=== PATIENT | male | born 1955 | race Caucasian/White ===

== ENCOUNTER 2017-10-11 20:09 | Emergency (ER) | payer MEDICARE, OTHER ==
[2017-10-11] MEDS ORDERED: Lidocaine 1%* 5 ML VIAL INJ ONE (22:48)
[2017-10-12 00:25] VITALS: BP 141/72
--- NOTE | 2017-10-12 01:43 | ED ---
Upper Extremity Pain - HPI Summary HPI Summary: Patient is a 62-year-old male presenting to emergency department for a left second finger injury as well as a right lower leg injury that occurred just prior to arrival. Patient states that he was docking his boat when he lost balance, fell and landed onto left second digit of hand. Patient states he struck his right lower leg off of it on the dock. No head injury or loss of consciousness. Patient is not anticoagulated. Can ambulate with pain. Symptoms are mild in severity. Moving affected areas makes symptoms worse. Rest makes symptoms better. - History of Current Complaint Chief Complaint: EDExtremityLower Stated Complaint: LEG/FINGER INJURY Time Seen by Provider: 10/11/17 22:14 Hx Obtained From: Patient - Allergies/Home Medications Allergies/Adverse Reactions: Allergies Allergy/AdvReac Type Severity Reaction Status Date / Time pregabalin [From Lyrica] Allergy Swelling Verified 10/11/17 20:25 Home Medications: Home Medications Aspirin [Adult Aspirin Regimen] 81 mg PO DAILY 10/11/17 [History Confirmed 10/11] Carvedilol TAB* [Coreg TAB*] 3.125 mg PO BID 10/11/17 [History Confirmed ] Docusate CAP* [Colace Cap*] 100 mg PO DAILY 10/11/17 [History Confirmed 10/11/17 ] Glimepiride (NF) 4 mg PO BID 10/11/17 [History Confirmed 10/11/17] Lisinopril/HCTZ 20/12.5(NF) [Zestoretic 20/12.5(NF)] 1 tab PO DAILY 10/11/17 [ History Confirmed 10/11/17] Meloxicam 15 mg PO DAILY 10/11/17 [History Confirmed 10/11/17] Pantoprazole TAB (NF) [Protonix TAB (NF)] 40 mg PO DAILY 10/11/17 [History Confirmed 10/11/17] Simvastatin TAB(NF) [Zocor(NF)] 20 mg PO 1700 10/11/17 [History Confirmed ] metFORMIN* [Glucophage 1000 MG TAB *] 1,000 mg PO BID 10/11/17 [History Confirmed 10/11/17] PMH/Surg Hx/FS Hx/Imm Hx Previously Healthy: Yes Infectious Disease History: No Infectious Disease History: Denies: Traveled Outside the [place] in Last 30 Days - Social History Occupation: Retired Lives: With Family Alcohol Use: None Substance Use Type: Reports: None Smoking Status (MU): Never Smoked Tobacco Review of Systems Positive: Other - Pain to left 2nd digit of hand. Right lower leg pain. Positive: Bruising Negative: Headache, Weakness, Paresthesia, Numbness, Syncope All Other Systems Reviewed And Are Negative: Yes Physical Exam Triage Information Reviewed: Yes Vital Signs On Initial Exam: Initial Vitals Temp Pulse Resp BP Pulse Ox 98.5 F 103 18 122/80 96 10/11/17 20:25 10/11/17 20:25 10/11/17 20:25 10/11/17 20:25 10/11/17 20:25 Vital Signs Reviewed: Yes Appearance: Positive: Well-Appearing - Pt. sitting on bed in NAD. Skin: Positive: Warm, Dry Head/Face: Positive: Normal Head/Face Inspection Eyes: Positive: Normal Neck: Positive: Supple Musculoskeletal: Positive: Other - Pain, mild edema and ecchymosis to the right distal medial leg. No breaks in the skin. Leg is neurovascularly intact. No knee or ankle pain. Compartment is soft. Obvious deformity to the left 2nd digit of hand. No breaks in the skin. No proximal pain. Neurological: Positive: Normal, CN Intact II-III Psychiatric: Positive: Affect/Mood Appropriate Procedures - Joint Reduction Left Joint Reduction Site: other - Left second digit of hand Specify Other Joint Reduced: Left second PIP joint of hand Conscious Sedation: No - Digital block using1% lido. Reduction Attempts: 1 Pre-Procedure NV Exam: Yes Post Joint Reduction Film: joint reduced Diagnostics - Vital Signs Vital Signs Temp Pulse Resp BP Pulse Ox 10/12/17 00:23 98.1 F 76 16 141/72 98 10/11/17 20:25 98.5 F 103 18 122/80 96 - Laboratory Lab Statement: Any lab studies that have been ordered have been reviewed, and results considered in the medical decision making process. Course/Dx - Course Course Of Treatment: Patient presenting with left finger injury and right lower leg injury. X-rays of right lower leg are negative for fracture dislocation, reading per radiology. X-ray of the left second digit of hand shows a dislocation at the PIP joint, no fracture, reading per radiology. Joint was easily reduced as noted above. Splint placed. Kip wrap placed right lower leg for comfort. Advised patient to call orthopedics on Friday for close follow-up appointment. Keep splint in place. To ice and elevate leg and finger intermittently. Tylenol for pain as directed. To return to the ear symptoms change or worsen. Patient understands and agrees with plan. - Diagnoses Differential Diagnosis/HQI/PQRI: Positive: Contusion, Fracture (Closed), Hematoma, Strain, Sprain Provider Diagnoses: Contusion of leg, right, Finger dislocation Discharge - Sign-Out/Discharge Documenting (check all that apply): Discharge/Admit/Transfer - Discharge Plan Condition: Good Disposition: HOME Patient Education Materials: Contusion in Adults (ED), Finger Dislocation (ED) Referrals: Ming Zuniga MD [Primary Care Provider] - John Ferreira MD [Medical Doctor] - Additional Instructions: Call Dr. Ferreira's office on Friday to schedule an appointment Keep finger splint in place Ice and elevate finger and leg Tylenol for pain as directed Return to ER if symptoms change or worsen - Billing Disposition and Condition Condition: GOOD Disposition: Home
--- NOTE | 2017-10-12 08:11 | RAD ---
Indication: Fall, right lower leg pain. 2 views of the right lower leg demonstrates no fracture. No other bone or joint abnormality is identified. IMPRESSION: No fracture of the right lower leg is noted.
--- NOTE | 2017-10-12 08:17 | RAD ---
Indication: Right second finger injury. 3 views of the right index finger demonstrates dorsal dislocation middle phalanx of the second digit. IMPRESSION: Dorsal dislocation middle phalanx of the second digit.
--- NOTE | 2017-10-12 08:37 | RAD ---
Indication: Left second digit dislocation. 3 views of the left index finger demonstrates reduction of the previous identified dorsal dislocation of the middle phalanx of the second digit. There may be a tiny volar plate fracture. IMPRESSION: Reduction of previously identified dorsal dislocation of the middle phalanx of the second digit.
== END 2017-10-12 00:23 | disposition home or self-care (01) ==
LOC: ED 20:09
DX: S63.252A Unspecified dislocation of right middle finger, initial encounter (principal); Y93.89 Activity, other specified; Z79.82 Long term (current) use of aspirin; Y92.62 Dock or shipyard as the place of occurrence of the external cause; W01.198A Fall on same level from slipping, tripping and stumbling with subsequent striking against other object, initial encounter; S80.11XA Contusion of right lower leg, initial encounter
CPT/HCPCS: 26770; 73140; 99282

== ENCOUNTER 2017-10-15 20:13 | Emergency (ER) | payer MEDICARE ==
[2017-10-15 20:59] LABS: ABS Basophils 0.1 10^3/ul (0-0.2); ABS Eosinophils 0.2 10^3/ul (0-0.6); ABS Monocytes 0.7 10^3/ul (0-0.8); ABS Neutrophils 5.7 10^3/ul (1.5-7.7); ABS Nucleated RBC 0 10^3/ul; Eosinophil % 1.8 % (0-6); Hematocrit 42 % (42-52); Hemoglobin 14.1 g/dl (14.0-18.0); Lymphocyte % 23.1 % (25-47); Mean Corpuscular HGB Conc 33 g/dl (31-36); Mean Corpuscular Hemoglobin 28 pg (27-31); Mean Corpuscular Volume 83 fL (80-94); Mean Platelet Volume 7.8 um3 (7.4-10.4); Nucleated Red Blood Cells % 0.1; Platelet Count 258 10^3/ul (150-450); Red Blood Count 5.07 10^6/ul (4.00-5.40); Red Cell Distribution Width 16 % (10.5-15); White Blood Count 8.6 10^3/ul (3.5-10.8)
[2017-10-15 21:09] LABS: INR 0.9 (0.77-1.02)
[2017-10-15 21:17] LABS: EGFR Non-African American 56.8 (>60)
--- NOTE | 2017-10-15 21:27 | ED ---
Lower Extremity - HPI Summary HPI Summary: 62-year-old male presents with right calf pain for the past week. A week ago he fell from his boat onto right leg. He had x-rays here which were negative. He states in the past day the edema of his ankle and right calf has increased. He denies any chest pressures or shortness of breath. He denies any numbness or tingling currently. He states that his leg feels tight due to edema. He denies any previous history of blood clots. Denies any family history of blood clots. He is not a smoker. No new trauma. He has noticed increasing redness to the foot. No fevers. has been ambulating but is becoming more difficult. he was sitting a lot today at a picnic in the sun. He did have numbness from buttock to foot today while sitting. this has since resolved. He is diabetic and has history of edema. - History of Current Complaint Chief Complaint: EDExtremityLower Stated Complaint: RT LEG SWOLLEN Time Seen by Provider: 10/15/17 20:29 Pain Intensity: 6 - Allergies/Home Medications Allergies/Adverse Reactions: Allergies Allergy/AdvReac Type Severity Reaction Status Date / Time pregabalin [From Lyrica] Allergy Swelling Verified 10/15/17 20:19 PMH/Surg Hx/FS Hx/Imm Hx Endocrine/Hematology History: Reports: Hx Diabetes Denies: Hx Anticoagulant Therapy Cardiovascular History: Denies: Hx Myocardial Infarction Infectious Disease History: No Infectious Disease History: Denies: Traveled Outside the [place] in Last 30 Days - Family History Known Family History: Positive: Hypertension - Social History Alcohol Use: None Substance Use Type: Reports: None Smoking Status (MU): Never Smoked Tobacco Review of Systems Negative: Fever Negative: Chest Pain Negative: Shortness Of Breath Positive: Myalgia - right calf pain All Other Systems Reviewed And Are Negative: Yes Physical Exam Triage Information Reviewed: Yes Vital Signs On Initial Exam: Initial Vitals Temp Pulse Resp BP Pulse Ox 98.1 F 101 14 116/73 94 10/15/17 20:14 10/15/17 20:14 10/15/17 20:14 10/15/17 20:14 10/15/17 20:14 Vital Signs Reviewed: Yes Appearance: Positive: Well-Appearing Skin: Positive: Warm, Dry Head/Face: Positive: Normal Head/Face Inspection Eyes: Positive: Normal, Conjunctiva Clear ENT: Positive: Pharynx normal Respiratory/Lung Sounds: Positive: Clear to Auscultation, Breath Sounds Present Cardiovascular: Positive: Normal, RRR Musculoskeletal: Positive: Strength/ROM Intact - right calf, [place] Sign Right, Edema Right - calf, Other - ecchymosis to right foot, tenderness right calf, good pulses, capillary refill<2 secs, sensation grossly intact Neurological: Positive: Normal Psychiatric: Positive: Normal Diagnostics - Vital Signs Vital Signs Temp Pulse Resp BP Pulse Ox 10/15/17 20:14 98.1 F 101 14 116/73 94 - Laboratory Lab Results: Lab Results 10/15/17 10/15/17 10/15/17 Range/Units 20:49 20:49 20:49 WBC 8.6 (3.5-10.8) 10^3/ul RBC 5.07 (4.00-5.40) 10^6/ul Hgb 14.1 (14.0-18.0) g/dl Hct 42 (42-52) % MCV 83 (80-94) fL MCH 28 (27-31) pg MCHC 33 (31-36) g/dl RDW 16 H (10.5-15) % Plt Count 258 (150-450) 10^3/ul MPV 7.8 (7.4-10.4) um3 Neut % (Auto) 66.8 (38-83) % Lymph % (Auto) 23.1 L (25-47) % Frio % (Auto) 7.7 H (0-7) % Eos % (Auto) 1.8 (0-6) % Baso % (Auto) 0.6 (0-2) % Absolute Neuts (auto) 5.7 (1.5-7.7) 10^3/ul Absolute Lymphs (auto) 2.0 (1.0-4.8) 10^3/ul Absolute Monos (auto) 0.7 (0-0.8) 10^3/ul Absolute Eos (auto) 0.2 (0-0.6) 10^3/ul Absolute Basos (auto) 0.1 (0-0.2) 10^3/ul Absolute Nucleated RBC 0 10^3/ul Nucleated RBC % 0.1 INR (Anticoag Therapy) 0.90 (0.77-1.02) APTT 28.6 (26.0-36.3) seconds Sodium 135 (135-145) mmol/L Potassium Pending Chloride 101 (101-111) mmol/L Carbon Dioxide 24 (22-32) mmol/L Anion Gap Pending BUN 31 H (6-24) mg/dL Creatinine 1.29 H (0.67-1.17) mg/dL Est GFR ( Amer) 68.7 (>60) Est GFR (Non-Af Amer) 56.8 (>60) BUN/Creatinine Ratio 24.0 H (8-20) Glucose 233 H (70-100) mg/dL Calcium 9.5 (8.6-10.3) mg/dL Total Bilirubin 0.30 (0.2-1.0) mg/dL AST Pending ALT 20 (7-52) U/L Alkaline Phosphatase 105 H (34-104) U/L Total Protein 7.2 (6.4-8.9) g/dL Albumin 4.1 (3.2-5.2) g/dL Globulin 3.1 (2-4) g/dL Albumin/Globulin Ratio 1.3 (1-3) Result Diagrams: 10/15/17 20:49 10/15/17 20:49 Lab Statement: Any lab studies that have been ordered have been reviewed, and results considered in the medical decision making process. - Ultrasound No standard instances Ultrasound Interpretation: No Acute Changes Ultrasound Interpretation Completed By: Radiologist Lower Extremity Course/Dx - Course Course Of Treatment: 62-year-old male presents with right calf pain for the past week. A week ago he fell from his boat onto right leg. He had x-rays here which were negative. He states in the past day the edema of his ankle and right calf has increased. He denies any chest pressures or shortness of breath. He denies any numbness or tingling. He states that his leg feels tight due to edema. He denies any previous history of blood clots. Denies any family history of blood clots. He is not a smoker. No new trauma. He has noticed increasing redness to the foot. No fevers. has been ambulating but is becoming more difficult. on exam has tenderness right calf, neurovascular intact. has ecchymosis of right foot. no sign of cellulitis. does not appear to have signs of compartment syndrome as pain down leg likely sciatica and neurovascular intact currently but warn of signs to return. reviewed xray from last time and entire area seen with no fx. u/s neg. explained likely just dependent edema from injury. encourage to elevate leg. patient has follow up with ortho tomorrow about hand. patient understand and agrees with plan. - Diagnoses Differential Diagnosis/HQI/PQRI: Positive: DVT, Fracture (Closed), Sprain, Strain Provider Diagnoses: Right calf pain Discharge - Sign-Out/Discharge Documenting (check all that apply): Discharge/Admit/Transfer - Discharge Plan Condition: Good Disposition: HOME Patient Education Materials: R.I.C.E. Treatment (ED) Referrals: Ming Zuniga MD [Primary Care Provider] - Additional Instructions: Stay off foot as much as possible Ice, elevate, use compression socks or keep robert on ankle Ibuprofen or tyenlol every 6 hours for pain Follow up with ortho tomorrow as scheduled Return to ED if develop or any new or worsening symptoms - Billing Disposition and Condition Condition: GOOD Disposition: Home
--- NOTE | 2017-10-15 21:38 | RAD ---
INDICATION: Pain and swelling. COMPARISON: None TECHNIQUE: Duplex interrogation of the Lowerextremity was performed. FINDINGS: Deep veins: The common femoral, great saphenous, profunda femoris, proximal, mid, and distal deep femoral, popliteal, posterior tibial, and peroneal veins are patent. There is normal compressibility, augmentation, and phasic flow. Superficial veins: There are no findings of superficial thrombophlebitis. Popliteal fossa:There is no evidence of a popliteal cyst. Soft tissues:There are no soft tissue abnormalities. IMPRESSION: NORMAL EXAMINATION. NO EVIDENCE OF DEEP VENOUS THROMBOSIS
[2017-10-15 22:56] VITALS: BP 102/68
== END 2017-10-15 22:52 | disposition home or self-care (01) ==
LOC: ED 20:13
DX: M79.661 Pain in right lower leg (principal); E11.9 Type 2 diabetes mellitus without complications
CPT/HCPCS: 36415; 80053; 85025; 85610; 85730; 99283

== ENCOUNTER 2019-01-30 16:06 | Emergency (ER) | payer MEDICARE ==
[2019-01-30] MEDS ORDERED: Tetan/Diph/Pertus SYR(Tdap)* 0.5 ML SYR(BOOSTRIX) use SYR contains LATEX IM ONE (16:25)
--- NOTE | 2019-01-30 16:36 | ED ---
Laceration/Wound HPI - HPI Summary HPI Summary: Patient is a 63 y/o M presenting to [facility] with laceration to the pad of the left second finger. He states that around 1530 today, 01/30/19, he had closed his truck door on the finger and got it caught. At present, finger is still bleeding. Patient is unsure of last tetanus, noting it might have been either 9 , 10, or more than 10 years ago. PMHx of HTN, HLD, diabetes is noted. He is on 81 mg ASA, metformin, meloxicam, simvastatin. Patient notes that he is not on blood thinners. He denies tobacco, alcohol, and substance usage. On triage, pain is rated 2/10, nothing is noted to aggravate/alleviate Sx. Home medications and allergies are reviewed. - History of Current Complaint Stated Complaint: LEFT POINTER FINGER LAC PER PT Time Seen by Provider: 01/30/19 16:13 Hx Obtained From: Patient Onset/Duration: Still Present Aggravating: Nothing Alleviating: Nothing Current Severity: Mild Pain Intensity: 2 Pain Scale Used: 0-10 Numeric Associated Signs & Symptoms: Negative - Allergy/Home Medications Allergies/Adverse Reactions: Allergies Allergy/AdvReac Type Severity Reaction Status Date / Time pregabalin [From Lyrica] Allergy Swelling Verified 01/30/19 16:12 PMH/Surg Hx/FS Hx/Imm Hx Endocrine/Hematology History: Reports: Hx Diabetes Denies: Hx Anticoagulant Therapy Cardiovascular History: Reports: Hx Hypercholesterolemia, Hx Hypertension Denies: Hx Myocardial Infarction Infectious Disease History: No Infectious Disease History: Denies: Traveled Outside the [place] in Last 30 Days - Family History Known Family History: Positive: Hypertension - Social History Alcohol Use: None Substance Use Type: Reports: None Smoking Status (MU): Never Smoked Tobacco Review of Systems Negative: Fever - on vitals, temp is 96.9 F Skin: Other - positive - second left finger laceration of the pad All Other Systems Reviewed And Are Negative: Yes Physical Exam - Summary Physical Exam Summary: Constitutional: Well-developed, Well-nourished, Alert. (-) Distressed Skin: 2 cm laceration of the pad of the left finger. Warm, Dry HENT: Normocephalic; Atraumatic Eyes: Conjunctiva normal Neck: Musculoskeletal ROM normal neck. (-) JVD, (-) Stridor, (-) Tracheal deviation Cardio: Rhythm regular, rate normal, Heart sounds normal; Intact distal pulses; Radial pulses are 2+ and symmetric. (-) Murmur Pulmonary/Chest wall: Effort normal. (-) Respiratory distress, (-) Wheezes, (-) Rales Abd: Soft, (-) tenderness, (-) Distension, (-) Guarding, (-) Rebound Musculoskeletal: FROM of the lacerated finger (-) Edema Lymph: (-) Cervical adenopathy Neuro: Alert, Oriented x3 Psych: Mood and affect Normal Triage Information Reviewed: Yes Vital Signs On Initial Exam: Initial Vitals Temp Pulse Resp BP Pulse Ox 96.9 F 97 18 132/91 96 01/30/19 16:07 01/30/19 16:07 01/30/19 16:07 01/30/19 16:07 01/30/19 16:07 Vital Signs Reviewed: Yes Procedures - Procedure Summary Procedure Summary: 10 cc of 1% lidocaine without epi was used for digital block. 2 cm laceration of the pad of the 2nd left finger was repaired using 5, 5-0 Nylon sutures in a single layer. Laceration was closed, there were no complications during the procedure. - Sedation Patient Received Moderate/Deep Sedation with Procedure: No - Laceration/Wound Repair 1 Location: upper extremity - left second finger pad Description: Linear Anesthesia: Digital, 1.0%, Lido Length, Depth and Shape: 2 cm linear Closure: Single Layer Suture Type: Nylon - 5-0 Number of Sutures: 5 Layer Closure?: Yes Sterile Dressing Applied?: Yes Diagnostics - Vital Signs Vital Signs Temp Pulse Resp BP Pulse Ox 01/30/19 16:07 96.9 F 97 18 132/91 96 - Laboratory Lab Statement: Any lab studies that have been ordered have been reviewed, and results considered in the medical decision making process. Laceration Repair Course/Dx - Course Course Of Treatment: Patient is here with a laceration to his second digit on the left. Patient is neurovascularly intact. Patient was given tetanus here. Patient had successful repair of the laceration. Patient had no other injury. - Clinical Impression Provider Diagnoses: Laceration of left index finger Discharge ED - Sign-Out/Discharge Documenting (check all that apply): Patient Departure - discharge - Discharge Plan Condition: Stable Disposition: HOME Patient Education Materials: Care For Your Stitches (ED), Finger Laceration (ED ) Referrals: Ming Zuniga MD [Primary Care Provider] - 7 Days Additional Instructions: Stitches out in 7-10 days. Ice your finger and take ibuprofen and Tylenol for pain. Return to ED for any redness or pus of the finger and any other concerning or worsening symptoms. - Billing Disposition and Condition Condition: STABLE Disposition: Home - Attestation Statements Document Initiated by Scribe: Yes Documenting Scribe: LARISA PONCE Provider For Whom Scribe is Documenting (Include Credential): LATONIA ESPINOSA MD Scribe Attestation: LARISA Tovar, scribed for LATONIA ESPINOSA MD on 01/30/19 at 1726. Scribe Documentation Reviewed: Yes Provider Attestation: The documentation as recorded by the LARISA davis accurately reflects the service I personally performed and the decisions made by , LATONIA ESPINOSA MD Status of Scribe Document: Viewed
[2019-01-30] MEDS ORDERED: Lidocaine 1% MPF ** 5 ML VIAL INJ ONE (16:42)
[2019-01-30 17:16] VITALS: BP 136/87
== END 2019-01-30 17:15 | disposition home or self-care (01) ==
LOC: ED 16:06
DX: S61.211A Laceration without foreign body of left index finger without damage to nail, initial encounter (principal); Z23 Encounter for immunization; V48.4XXA Person boarding or alighting a car injured in noncollision transport accident, initial encounter; Y92.9 Unspecified place or not applicable; E11.9 Type 2 diabetes mellitus without complications; E78.00 Pure hypercholesterolemia, unspecified; I10 Essential (primary) hypertension; Z79.82 Long term (current) use of aspirin; Z79.84 Long term (current) use of oral hypoglycemic drugs; Z79.899 Other long term (current) drug therapy; Z88.8 Allergy status to other drugs, medicaments and biological substances
CPT/HCPCS: 12001; 90471; 90715; 99282

== ENCOUNTER 2019-02-03 17:48 | Emergency (ER) | payer MEDICARE ==
--- NOTE | 2019-02-03 18:16 | ED ---
Laceration/Wound HPI - HPI Summary HPI Summary: 63-year-old male presents with suture falling out of left index finger. He states he just had them placed on Friday. He states 3 of the sutures fell out. He denies any rashes. No drainage from the wound. No fevers. Is diabetic. Has been keeping the wound clean. - History of Current Complaint Stated Complaint: LT INDEX FINGER STITCHES ISSUE PER PT Time Seen by Provider: 02/03/19 18:01 Pain Intensity: 0 - Allergy/Home Medications Allergies/Adverse Reactions: Allergies Allergy/AdvReac Type Severity Reaction Status Date / Time pregabalin [From Lyrica] Allergy Swelling Verified 02/03/19 18:08 Home Medications: Home Medications Dulaglutide (NF) [Trulicity (NF)] 1 dose SUBCUT WEEKLY 02/03/19 [History Confirmed 02/03/19] PMH/Surg Hx/FS Hx/Imm Hx Endocrine/Hematology History: Reports: Hx Diabetes Denies: Hx Anticoagulant Therapy Cardiovascular History: Reports: Hx Hypercholesterolemia, Hx Hypertension Denies: Hx Myocardial Infarction - Immunization History Date of Tetanus Vaccine: >10yrs Infectious Disease History: No Infectious Disease History: Denies: Traveled Outside the [place] in Last 30 Days - Family History Known Family History: Positive: Hypertension - Social History Alcohol Use: Rare Substance Use Type: Reports: None Smoking Status (MU): Never Smoked Tobacco Review of Systems Negative: Fever Negative: Chest Pain Negative: Shortness Of Breath Positive: Other - suture fall out of laceration All Other Systems Reviewed And Are Negative: Yes Physical Exam Triage Information Reviewed: Yes Vital Signs On Initial Exam: Initial Vitals Temp Pulse Resp BP Pulse Ox 98.0 F 99 16 128/85 98 02/03/19 17:50 02/03/19 17:50 02/03/19 17:50 02/03/19 17:50 02/03/19 17:50 Vital Signs Reviewed: Yes Skin: Positive: Other - index finger with 3 sutures and area that is slightly open to distal phalanx finger, no evidence of celluliits or dehiscence Head/Face: Positive: Normal Head/Face Inspection Eyes: Positive: Normal, Conjunctiva Clear ENT: Positive: Pharynx normal Respiratory/Lung Sounds: Positive: Clear to Auscultation, Breath Sounds Present Cardiovascular: Positive: Normal, RRR Musculoskeletal: Positive: Normal Neurological: Positive: Normal Psychiatric: Positive: Normal Procedures - Sedation Patient Received Moderate/Deep Sedation with Procedure: No Diagnostics - Vital Signs Vital Signs Temp Pulse Resp BP Pulse Ox 02/03/19 17:50 98.0 F 99 16 128/85 98 - Laboratory Lab Statement: Any lab studies that have been ordered have been reviewed, and results considered in the medical decision making process. Laceration Repair Course/Dx - Course Course Of Treatment: 63-year-old male presents with suture falling out of left index finger. He states he just had them placed on Friday. He states 3 of the sutures fell out. He denies any rashes. No drainage from the wound. No fevers. Is diabetic. Has been keeping the wound clean. On exam has 1cm area that does not have any sutures that is open but no evidence of dehiscence. Does have [address] Steri-Strips on the area to close the area as cant placed sutures as has been a couple days. Will place on Keflex to prevent any signs of infection. Told keep the area clean. Patient understands agrees plan. - Differential Dx Differental Diagnoses: Dehiscence, Healing Wound, Laceration - Clinical Impression Provider Diagnoses: Healing laceration Discharge ED - Sign-Out/Discharge Documenting (check all that apply): Patient Departure - Discharge Plan Condition: Good Disposition: HOME Prescriptions: Cephalexin CAP* [Keflex CAP*] 500 mg PO BID #13 cap Patient Education Materials: Steristrips (ED) Referrals: Ming Zuniga MD [Primary Care Provider] - Additional Instructions: sutures out as initially stated on previous discharge paperwork steristrips will fall off on own continue washing area take keflex twice a day for 7 days Return to ED if develop any new or worsening symptoms - Billing Disposition and Condition Condition: GOOD Disposition: Home - Attestation Statements Provider Attestation: I was available for consultation for this patient. I did not evaluate the patient or participate in any medical decision making or disposition decisions unless I am specifically named in the chart as having consulted on the patient. If I have consulted on the patient, please see my own ED note on the patient encounter. Subhash Matthews MD
[2019-02-03] MEDS: Cephalexin CAP* 500 MG PO ONE (18:19)
[2019-02-03 18:38] VITALS: BP 124/84
== END 2019-02-03 18:20 | disposition home or self-care (01) ==
LOC: ED 17:48
DX: S61.211A Laceration without foreign body of left index finger without damage to nail, initial encounter (principal); X58.XXXA Exposure to other specified factors, initial encounter; Y92.9 Unspecified place or not applicable; E11.9 Type 2 diabetes mellitus without complications; E78.00 Pure hypercholesterolemia, unspecified; I10 Essential (primary) hypertension; Z79.899 Other long term (current) drug therapy; Z88.8 Allergy status to other drugs, medicaments and biological substances
CPT/HCPCS: 99282; A9270-GY

== ENCOUNTER 2019-02-19 09:39 | Emergency (ER) | payer MEDICARE ==
[2019-02-19 10:02] VITALS: BP 150/89
--- NOTE | 2019-02-19 11:16 | UC ---
Hand/Wrist HPI - HPI Summary HPI Summary: 63-year-old male presents with complaints of right wrist pain. States last night he was on the floor working and when he pushed himself up off the floor felt a pop in the radial wrist followed by sudden onset of pain. States pain has worsened overnight and now notes some swelling of the wrist. Worsens with any type of movement. No alleviating factors and has not taken over-the- counter analgesics. Denies any numbness or tingling. - History Of Current Complaint Chief Complaint: UCUpperExtremity Stated Complaint: RT WRIST INJURY Time Seen by Provider: 02/19/19 10:36 Hx Obtained From: Patient Pain Intensity: 8 - Allergies/Home Medications Allergies/Adverse Reactions: Allergies Allergy/AdvReac Type Severity Reaction Status Date / Time cephalexin [From Keflex] Allergy Nausea And Verified 02/19/19 10:04 Vomiting pregabalin [From Lyrica] Allergy Swelling Verified 02/19/19 10:02 PMH/Surg Hx/FS Hx/Imm Hx Endocrine History: Diabetes Cardiovascular History: Hypertension GI/ History: Gastroesophageal Reflux Other History Of: Negative For: Anticoagulant Therapy - Surgical History Surgical History: Yes Surgery Procedure, Year, and Place: back, shoulder - Family History Known Family History: Positive: Hypertension - Social History Occupation: Retired Lives: With Family Alcohol Use: None Substance Use Type: None Smoking Status (MU): Never Smoked Tobacco Review of Systems All Other Systems Reviewed And Are Negative: Yes Constitutional: Positive: Negative Skin: Negative: Bruising Respiratory: Positive: Negative Cardiovascular: Positive: Negative Gastrointestinal: Positive: Negative Genitourinary: Positive: Negative Motor: Negative: Weakness Neurovascular: Negative: Decreased Sensation Musculoskeletal: Positive: Other: - See HPI Neurological: Positive: Negative Is Patient Immunocompromised?: No Physical Exam - Summary Physical Exam Summary: GENERAL APPEARANCE: Alert and cooperative obese adult male who appears to be in no acute distress. CARDIAC: Normal S1 and S2. No S3, S4 or murmurs. Rhythm is regular. There is no peripheral edema, cyanosis or pallor. Extremities are warm and well perfused. Capillary refill is less than 2 seconds. Peripheral pulses intact. LUNGS: Clear to auscultation without rales, rhonchi, wheezing or diminished breath sounds. ABDOMEN: Positive bowel sounds. Soft, nondistended, nontender. No guarding or rebound. No masses or hepatosplenomegally. MUSKULOSKELETAL: Normal muscular development. Normal gait. EXTREMITIES: Mild tenderness to the dorsal radial right wrist with mild edema. Flexion and ulnar deviation mildly decreased due to pain. No gross deformity, erythema, or eccymosis noted. Circulation and sensation intact. SKIN: Skin normal color, texture and turgor with no lesions or eruptions. Triage Information Reviewed: Yes Vital Signs: Initial Vital Signs Temp 98 F 02/19/19 09:59 Pulse 86 02/19/19 09:59 Resp 18 02/19/19 09:59 BP 150/89 02/19/19 09:59 Pulse Ox 98 02/19/19 09:59 Vital Signs Reviewed: Yes Diagnostics - Radiology No standard instances Radiology Interpretation Completed By: Radiologist Summary of Radiographic Findings: Order Information: WRIST RIGHT 3+ VWS. HISTORY: pain ., Ulnar wrist pain. COMPARISONS: April 25, 2008 VIEWS: 3, Frontal, lateral, and oblique views of the right breast. FINDINGS: BONE DENSITY: Normal. BONES: There is no acute displaced fracture. There is a well- corticated bone fragment along the radial aspect of the proximal carpal row which may reflect remote avulsion injury. This can be identified on the 2008 examination and is stable. JOINTS: There is no arthropathy. ALIGNMENT: There is no dislocation. SOFT TISSUES: Unremarkable. OTHER FINDINGS: None. IMPRESSION: NO ACUTE OSSEOUS INJURY. Hand/Wrist Course/Dx - Course Course Of Treatment: 63-year-old male presents with complaints of right wrist pain. States last night he was on the floor working and when he pushed himself up off the floor felt a pop in the radial wrist followed by sudden onset of pain. States pain has worsened overnight and now notes some swelling of the wrist. Worsens with any type of movement. No alleviating factors and has not taken over-the- counter analgesics. Denies any numbness or tingling. Afebrile. Hypertensive otherwise vital signs stable. Patient had mild tenderness to the dorsal radial right wrist with mild edema. Flexion and ulnar deviation mildly decreased due to pain. No gross deformity, erythema, or eccymosis noted. Circulation and sensation intact. Remainder of exam was unremarkable. X-ray of the wrist show no acute osseous injury. Reviewed results with the patient. Recommending conservative treatment for a right wrist sprain including acetaminophen for pain and RICE. Patient was placed in a cockup wrist splint by the RN. He is to follow-up with orthopedic surgery in 7 days if no improvement in symptoms. Anticipatory guidance and warning symptoms were reviewed with the patient. Verbalizes understanding and agrees with plan of care. - Differential Dx/Diagnosis Differential Diagnosis/HQI/PQRI: Contusion, Dislocation, Fracture, Sprain Provider Diagnosis: Right wrist sprain Discharge ED - Sign-Out/Discharge Documenting (check all that apply): Patient Departure All imaging exams completed and their final reports reviewed: Yes - Discharge Plan Condition: Stable Disposition: HOME Patient Education Materials: Wrist Sprain (ED) Referrals: Ming Zuniga MD [Primary Care Provider] - Shaila Lehman MD [Medical Doctor] - (If no improvement in symptoms. Call for appointment.) Additional Instructions: The x-ray performed in the clinic today showed no evidence of a fracture. Rest the wrist as much as possible. Use your cockup wrist splint until pain- free. You may remove to shower but should wear at all other times. Apply ice to the affected area for 15-20 minutes at least 4 times a day to help with the pain and swelling. Elevate the arm to help reduce swelling. Take acetaminophen (Tylenol) according to directions as needed for pain. Follow up with orthopedic surgery in 7 days if symptoms do not improve. Call for appointment. Seek immediate medical attention if you have severe pain not managed with pain medication, develop numbness or tingling in the hand or illness, or have any worsening of symptoms. - Billing Disposition and Condition Condition: STABLE Disposition: Home
== END 2019-02-19 11:26 | disposition home or self-care (01) ==
LOC: UCEAST 09:39
DX: S63.501A Unspecified sprain of right wrist, initial encounter (principal); X58.XXXA Exposure to other specified factors, initial encounter; Y92.9 Unspecified place or not applicable; E11.9 Type 2 diabetes mellitus without complications; I10 Essential (primary) hypertension; Z88.1 Allergy status to other antibiotic agents; Z88.8 Allergy status to other drugs, medicaments and biological substances
CPT/HCPCS: 99211; G0463